=== PATIENT | male | born 1995 | race Caucasian/White ===

== ENCOUNTER 2020-09-14 17:27 | Emergency (ER) | payer OTHER ==
--- NOTE | 2020-09-14 17:41 | ED General ---
General Stated Complaint: MED CLEARANCE History of Present Illness Date Seen by Provider: Sep 14, 2020 Time Seen by Provider: 17:51 Initial Comments 24-year-old male brought in by [facility] for medical clearance. Patient reports that "he is good" and does not want thing done not even vital signs. Patient has abrasions on his right elbow and right knee. Patient states he does not want to waste any base time but does not want any further clearance provided and is ready to be taken by law enforcement. Allergies and Home Medications Patient Home Medication List Home Medication List Reviewed: Yes Review of Systems Review of Systems Constitutional: no symptoms reported EENTM: no symptoms reported Respiratory: no symptoms reported Cardiovascular: no symptoms reported Gastrointestinal: no symptoms reported Genitourinary: no symptoms reported Musculoskeletal: no symptoms reported Skin: see HPI Psychiatric/Neurological: No Symptoms Reported Hematologic/Lymphatic: No Symptoms Reported Physical Exam Vital Signs Capillary Refill : Height, Weight, BMI Height: '" Weight: lbs. oz. kg; BMI Method: General Appearance: No Apparent Distress Respiratory: No Accessory Muscle Use, No Respiratory Distress Cardiovascular: No Edema Neurologic/Psychiatric: Alert, Normal Mood/Affect Skin: Other (Abrasions right elbow and right knee) Progress/Results/Core Measures Suspected Sepsis SIRS Temperature: Pulse: Respiratory Rate: Blood Pressure / Mean: Results/Orders Vital Signs/I&O Capillary Refill : Progress Note : Progress Note Exam limited to visual exam based on patient request. Patient discharged and okay for incarceration Departure Impression Primary Impression: Medical clearance for incarceration Disposition: [address]/[employer] Condition: Stable Departure-Patient Inst. Referrals: NO,LOCAL PHYSICIAN (PCP/Family) Primary Care Physician Add. Discharge Instructions: Medically cleared for incarceration based on limited exam LAUREN SAMUEL DO Sep 14, 2020 17:41
== END 2020-09-14 17:56 ==
LOC: ER FS 17:31
DX: Z02.89 Encounter for other administrative examinations (principal)
CPT/HCPCS: 99281